=== PATIENT | female | born 1980 | race Caucasian/White ===

== ENCOUNTER → 2021-08-22 11:23 | Outpatient (CLI) | payer OTHER, SELFPAY ==
--- NOTE | 2021-08-22 11:28 | DI.MRI.S_ITS ---
PROCEDURE: MR KNEE LT WO CON INDICATIONS: SPRAIN OF LIGAMENT TECHNIQUE: Noncontrast sagittal PD fast spin echo and T2 fast spin echo with fat saturation, sagittal 3-D FLASH with fat saturation; coronal T1 spin echo and PD fast spin echo with fat saturation, and axial PD fast spin echo with fat saturation through the knee. COMPARISON: [facility], CR, XR KNEE 3 VIEWS LEFT, 06/10/2021, 11:26. FINDINGS: Image quality: Excellent. Menisci: The medial and lateral menisci demonstrate normal morphology and internal signal. The meniscal root ligaments appear intact. Cruciate ligaments: The anterior and posterior cruciate ligaments appear intact. Medial structures: There is grade 2-3 tear of the proximal medial collateral ligament. The semimembranosus tendon insertions and meniscocapsular junction appear intact. Visualized portions of the pes anserinus tendons appear normal. No abnormal bursal fluid. Lateral structures: The lateral collateral ligament, long and short heads of the biceps femoris tendon appear intact. The popliteus tendon appears normal. Iliotibial band appears normal. Anterior structures: The quadriceps and patellar tendons appear intact. Patellar alignment is normal. No femoral trochlear dysplasia or ventral trochlear prominence. Mild edema in the superior lateral aspect of the infrapatellar fat pad. Bones and cartilage: No bone marrow contusions or fractures. The cartilage of the medial and lateral femorotibial compartments, as well as the patellofemoral compartment, appears normal in thickness. Joint space: There is trace knee joint effusion. No Wilson's cyst. Normal appearing synovial plicae are incidentally noted. IMPRESSION: 1. Tear of the proximal medial collateral ligament (grade 2-3). 2. Mild edema in infrapatellar fat pad suggesting Hoffa pad impingement. 3. Small knee joint effusion. Dictated by: Shirley Epps M.D. on 08/24/2021 at 8:02 Approved by: Shirley Epps M.D. on 08/24/2021 at 9:49
== END ==
PROVIDERS: Referring Provider Family Medicine; Visit Provider Family Medicine
DX: S83.412A Sprain of medial collateral ligament of left knee, initial encounter (principal); M25.462 Effusion, left knee; X58.XXXA Exposure to other specified factors, initial encounter
CPT/HCPCS: 73721